=== PATIENT | male | born 1955 | race Caucasian/White ===

== ENCOUNTER 2022-12-06 08:05 | Inpatient (IN) ==
[2022-12-06] MEDS ORDERED: Lactated Ringers 1000 ml BAG 1,000 ML IV ONE (08:15)
[2022-12-06 08:25] LABS: ABS Eosinophils 0.1 10^3/uL (0.0-0.5); ABS Lymphocytes 1.5 10^3/uL (1.0-4.8); ABS Monocytes 0.4 10^3/uL (0.0-1.1); ABS Neutrophils 4.8 10^3/uL (1.5-7.6); ABS Nucleated RBC 0.01 10^3/ul; Eosinophil % 1.9 %; Hematocrit 44.9 % (38-53); Hemoglobin 15.5 g/dL (13.2-16.3); Lymphocyte % 21.7 %; Mean Corpuscular Hemoglobin 32.8 pg (27-33); Mean Corpuscular Hgb Conc 34.4 g/dL (31-36); Mean Corpuscular Volume 95.2 fL (80-97); Mean Platelet Volume 7.2 fL (7.5-11.2); Nucleated Red Blood Cells % 0.2 /100 WBC (0.0-0.4); Platelet Count 210 10^3/uL (150-450); Red Blood Count 4.72 10^6/uL (4.06-5.63); Red Cell Distribution Width 12.5 % (12-17); White Blood Count 6.8 10^3/uL (3.6-10.2)
[2022-12-06 08:35] LABS: INR 1.13 (0.88-1.18)
[2022-12-06] MEDS ORDERED: LORazepam 2 mg VIAL 1 ml ONE (08:48)
[2022-12-06 09:04] LABS: Albumin 4.3 g/dL (3.2-5.2); Albumin/Globulin Ratio 1.9 (1-3); Calcium 9.3 mg/dL (8.6-10.3); Creatinine, Serum 0.8 mg/dL (0.67-1.17); Globulin 2.3 g/dL (2-4); Magnesium 1.8 mg/dL (1.9-2.7); Potassium 3.8 mmol/L (3.5-5.0); Total Bilirubin 0.7 mg/dL (0.2-1.0); Total Protein 6.6 g/dL (6.4-8.9)
[2022-12-06] MEDS ORDERED: Magnesium Sulfate 2 gm BAG 2 GM/50 ML BAG IVPB ONE (09:04)
[2022-12-06] MEDS ORDERED: Atropine 0.1 MG/ML 10 ml SYR (1 mg) ONE ×2 (09:13→22:54)
[2022-12-06] MEDS ORDERED: Ondansetron 4 mg VIAL 2 MG/ML 2 ml VIAL IV PRN (09:15)
[2022-12-06] MEDS ORDERED: Ondansetron 4 mg VIAL 2 MG/ML 2 ml VIAL IV ONE (09:17)
[2022-12-06 09:53] LABS: High Sensitivity Troponin 1 Hr 4 pg/mL (<20)
[2022-12-06] MEDS ORDERED: Scopolamine 1 mg/72hr PATCH TRANSDERM SCH (10:00)
[2022-12-06] MEDS ORDERED: Enoxaparin 40 MG/0.4 ML SYR SUBCUT SCH (10:00)
[2022-12-06 11:56] LABS: Prolactin 22.4 ng/mL (1.0-20.0)
[2022-12-06] MEDS: Nicotine PATCH 21 MG/24 HR PATCH TRANSDERM SCH (14:46)
[2022-12-06] MEDS ORDERED: Pneumococcal Vac 23-Polyvalent IM ONE (15:00)
[2022-12-06 15:11] LABS: Urine Appearance Clear; Urine Bilirubin Negative (Negative); Urine Blood Negative (Negative); Urine Color Yellow; Urine Glucose Negative (Negative); Urine Ketones Negative (Negative); Urine Nitrite Negative (Negative); Urine Protein Negative (Negative); Urine Specific Gravity 1.009 (1.002-1.030); Urine Urobilinogen Negative (Negative)
[2022-12-07] MEDS ORDERED: ceFAZolin 2 GM in NS PREMIX 2 GM/100 ML BAG IVPB ONE (00:25)
[2022-12-07] MEDS ORDERED: NS 0.9% 1000 ml BAG 1,000 ML IV SCH ×2 (06:00→10:49)
[2022-12-07 06:15] LABS: ABS Basophils 0.1 10^3/uL (0.0-0.1); ABS Eosinophils 0.1 10^3/uL (0.0-0.5); ABS Lymphocytes 1.9 10^3/uL (1.0-4.8); ABS Monocytes 0.5 10^3/uL (0.0-1.1); ABS Neutrophils 4.9 10^3/uL (1.5-7.6); ABS Nucleated RBC 0.01 10^3/ul; Eosinophil % 1.9 %; Hematocrit 44.8 % (38-53); Hemoglobin 15.6 g/dL (13.2-16.3); Lymphocyte % 25.5 %; Mean Corpuscular Hgb Conc 34.7 g/dL (31-36); Mean Corpuscular Volume 95.1 fL (80-97); Mean Platelet Volume 7.1 fL (7.5-11.2); Nucleated Red Blood Cells % 0.1 /100 WBC (0.0-0.4); Platelet Count 199 10^3/uL (150-450); Red Blood Count 4.71 10^6/uL (4.06-5.63); White Blood Count 7.5 10^3/uL (3.6-10.2)
[2022-12-07 06:51] LABS: Albumin 3.8 g/dL (3.2-5.2); Albumin/Globulin Ratio 1.9 (1-3); Calcium 9.1 mg/dL (8.6-10.3); Creatinine, Serum 0.83 mg/dL (0.67-1.17); HDL Cholesterol 40.8 mg/dL; Phosphorus 2.6 mg/dL (2.5-5.0); Potassium 4.1 mmol/L (3.5-5.0); Total Bilirubin 0.5 mg/dL (0.2-1.0); Total Protein 5.8 g/dL (6.4-8.9); eGFR CKD-EPI 95.9 (>60)
[2022-12-07] MEDS: Nicotine PATCH 21 MG/24 HR PATCH TRANSDERM SCH ×2 (06:51→16:16)
[2022-12-07] MEDS ORDERED: fentaNYL 100 mcg/2 ml 50 MCG/ML VIAL IV SLOW PU ONE (07:35)
[2022-12-07] MEDS ORDERED: Midazolam 10 mg/10 ml VIAL 1 mg/ml 10 ml VIAL (10 mg) IV SLOW PU ONE (07:35)
[2022-12-07] MEDS ORDERED: Lidocaine 1% VIAL 10 MG/ML VIAL 30 ML ONE (08:24)
[2022-12-07] MEDS ORDERED: fentaNYL 100 mcg/2 ml 50 MCG/ML VIAL ONE (08:31)
[2022-12-07] MEDS ORDERED: Iohexol 300 (CONTRAST) 10 ML SDV ONE (08:31)
[2022-12-07] MEDS ORDERED: Midazolam 5 mg/5 ml VIAL 1 mg/ml 5 ml VIAL (5 mg) ONE ×2 (08:31→09:00)
[2022-12-07] MEDS ORDERED: ceFAZolin VIAL 1 GM in NS 0.9% 50 ML 50 ML IVPB SCH (10:00)
[2022-12-07] MEDS ORDERED: Pneumococcal Vac 23-Polyvalent IM ONE (15:00)
[2022-12-07] MEDS: ceFAZolin VIAL 1 GM in NS 0.9% 50 ML 50 ML IVPB SCH ×2 (15:48→21:29)
[2022-12-07] MEDS ORDERED: Nicotine GUM 4MG FRUIT FLAVOR PO PRN (16:00)
[2022-12-08] MEDS: ceFAZolin VIAL 1 GM in NS 0.9% 50 ML 50 ML IVPB SCH (06:39)
[2022-12-08] MEDS: Nicotine PATCH 21 MG/24 HR PATCH TRANSDERM SCH (09:28)
[2022-12-08 14:48] VITALS: BP 162/99
[2022-12-08 17:01] LABS: IgG Immunoblot Positive (Negative); IgM Immunoblot Negative (Negative)
== END 2022-12-08 15:50 | disposition home or self-care (01) | DRG 242 ==
LOC: ED 08:05 → SUATTDRO 09:17 → ICU 09:17 → MEDTELE 12-07 12:35
PROVIDERS: ADMIT Internal Medicine Critical Care Medicine; ATTEND Internal Medicine